=== PATIENT | male | born 1995 | race Caucasian/White ===

== ENCOUNTER 2019-12-12 15:48 | Emergency (ER) | payer BC, SELFPAY ==
[2019-12-12 16:00] VITALS: BP 138/71; PULSE 70; RESP 20; TEMP 36.7; O2SAT 98; BMI 27.6
[2019-12-12 16:02] VITALS: BP 138/71; PULSE 70; RESP 20; TEMP 36.7; O2SAT 98; BMI 27.6
[2019-12-12 16:36] VITALS: BP 138/71; PULSE 70; RESP 20; TEMP 36.7; O2SAT 98
== END 2019-12-12 16:39 | disposition home or self-care (01) ==
PROVIDERS: Emergency Provider Nurse Practitioner Family; PCP Family Medicine
DX: S61.432A Puncture wound without foreign body of left hand, initial encounter (principal); S61.431A Puncture wound without foreign body of right hand, initial encounter; Z23 Encounter for immunization
CPT/HCPCS: 90471; 90715; 99201

== ENCOUNTER 2020-03-15 10:28 | Emergency (ER) | payer BC, SELFPAY ==
[2020-03-15 10:35] VITALS: BP 115/66; PULSE 78; RESP 18; TEMP 36.9; O2SAT 98; BMI 27.1
[2020-03-15 10:46] VITALS: BP 115/66; PULSE 76; RESP 18; O2SAT 97
--- NOTE | 2020-03-15 10:47 | XR_ITS ---
PROCEDURE: XR FOOT LT MIN 3V CLINICAL INDICATION: fall Posttraumatic pain COMPARISON: No exams were available for comparison FINDINGS: Or there is dislocation of the PIP joint of the 4th toe. The middle phalanx is dislocated laterally. No obvious fracture. IMPRESSION: Dislocation of the PIP joint of the 4th toe Dictated by: Edmund Law MD 03/15/2020 11:59 Edmund Law MD in [place] 03/15/2020 11:59
--- NOTE | 2020-03-15 10:52 | PC.NURSE ---
rad called for ultrasound
--- NOTE | 2020-03-15 12:03 | HMH.EDGENADL ---
ED Disposition Clinical Impression: Dislocation of toe, left, closed Qualifiers: Encounter type: initial encounter Qualified Code(s): S93.105A - Unspecified dislocation of left toe(s), initial encounter Disposition: Home, Self-Care Condition on Discharge: Good Instructions: DI for Dislocated Toe Prescriptions: Ibuprofen [Ibuprofen 800mg Tablet] 800 mg PO TIDP PRN #20 tab PRN Reason: Moderate Pain Transmission Status: Pending to [facility] Referrals: Sherwin Lisa MD [Primary Care Provider] - - Critical Care Critical Care Time: No Attestation: On 03/15/20, the high probability of a clinically significant, sudden or life threatening deterioration of the following system(s) required my full and direct attention, intervention and personal management. The time I documented below is in addition to time spent performing reported procedures but includes the following listed in this critical care notation. Medical Decision Making - Medical Records Medical records reviewed: Yes: I reviewed the patient's medical records. - Je Inquiry Pt receiving controlled substance: Yes Je was queried for this patient: No Risks and benefits of using a controlled substance: were discussed with pt by me Vital Signs: 03/15/20 10:35 03/15/20 10:46 Temperature 98.4 F Temperature Source Oral Pulse Rate [Radial] 78 76 Respiratory Rate 18 18 Blood Pressure [Right Arm] 115/66 115/66 Blood Pressure Mean [Right Arm] 82 82 Blood Pressure Source [Right Arm] Automatic Cuff Automatic Cuff Blood Pressure Position [Right Arm] Sitting Sitting 02 Sat by Pulse Oximetry 98 97 Oxygen Delivery Method Room Air Orders (Tests/Meds): ED MEDICATIONS Discontinued Medications Generic Name Dose Route Start Last Admin Trade Name Freq PRN Reason Stop Dose Admin Ibuprofen 600 mg 03/15/20 10:40 03/15/20 10:42 Motrin 600mg Tablet PO 03/15/20 10:41 600 mg ONCE ONE Administration Lidocaine HCl 5 ml 03/15/20 11:25 Lidocaine 1% 10ml Mdv SQ 03/15/20 11:26 ONCE ONE Morphine Sulfate 4 mg 03/15/20 11:24 03/15/20 11:35 Morphine 4mg/Ml Syringe IM 03/15/20 11:25 4 mg ONCE ONE Administration ORDERS Category Date Time Status Foot XR left 2 views [XR foot LT 2V] Stat Exams 03/15/20 11:50 Ordered - Radiology Data #1 Image(s): Foot/Toes FINDINGS: Or there is dislocation of the PIP joint of the 4th toe. The middle phalanx is dislocated laterally. No obvious fracture. IMPRESSION: Dislocation of the PIP joint of the 4th toe - Reevaluation(s) Time: 12:06 Reevaluation #1: On reevaluation, patient's pain is improved. Patient was placed in Ortho shoe. Needs to follow-up with PCP in 48 hours. Given strict return precautions. Verbalized understanding. Medical Decision Narrative: 24-year-old male presented to the emergency department with obvious toe dislocation. Patient will require resetting. Imaging obtained. Patient provided analgesics. General Adult HPI - General Chief complaint: PAIN Stated complaint: left foot 3rd toe Time Seen by Provider: 03/15/20 10:40 Mode of Arrival: Wheelchair Limitations: No Limitations Description of Symptoms (Recalled from ER Triage Doc. by RN): Tripped over a board and dislocated his left fourth toe. - History of Present Illness HPI narrative: This is a 24-year-old male presented to the emergency department with pain in his left foot. The patient tripped over a board while he was working and injured his foot. His fourth toe was obviously dislocated. Patient did not sustain any ankle injuries or leg injuries. Did not hit his head. No other injuries were sustained. Has a small scratch on the upper part of his foot. Tetanus is up-to-date. - Related Data Home Medications Medication Instructions Recorded Confirmed fluticasone propionate 50 2 spray INTRANASAL DAILY 02/06/19 02/06/19 mcg/actuation nasal s
[2020-03-15 12:06] VITALS: BP 102/64; PULSE 59; O2SAT 98
[2020-03-15 12:39] VITALS: BP 102/64; PULSE 65; RESP 19; TEMP 36.6; O2SAT 99
== END 2020-03-15 12:41 | disposition home or self-care (01) ==
PROVIDERS: Emergency Provider Emergency Medicine; PCP Family Medicine
DX: S93.105A Unspecified dislocation of left toe(s), initial encounter (principal); W01.0XXA Fall on same level from slipping, tripping and stumbling without subsequent striking against object, initial encounter; Y92.89 Other specified places as the place of occurrence of the external cause
CPT/HCPCS: 28660; 73620; 73630; 96372; 99282

== ENCOUNTER 2021-02-02 11:43 | Emergency (ER) | payer BC, SELFPAY ==
[2021-02-02 12:03] VITALS: BP 125/87; PULSE 76; RESP 19; TEMP 36.8; O2SAT 98; BMI 29.1
--- NOTE | 2021-02-02 12:29 | HMH.EDUTC ---
[facility] [place] Disposition Clinical Impression: Fatigue Qualifiers: Fatigue type: unspecified Qualified Code(s): R53.83 - Other fatigue Disposition: Home, Self-Care Condition on Discharge: Good Instructions: DI for Fatigue Additional Instructions: Make sure to call and follow up with your Family Doctor as soon as possible for further evaluation and lab testing Return if needed Straight to ER if any life threatening symptoms Referrals: Sherwin Lisa MD [Primary Care Provider] - As needed Forms: Work/School Release Time of Disposition: 12:39 Medical Decision Making - Je Inquiry Pt receiving controlled substance: No Je was queried for this patient: No Vital Signs: 02/02/21 12:03 Temperature 98.3 F Temperature Source Oral Pulse Rate [Left] 76 Respiratory Rate 19 Blood Pressure [Right Arm] 125/87 Blood Pressure Mean [Right Arm] 99 02 Sat by Pulse Oximetry 98 Medical Decision Narrative: Discussed with patient and recommended to follow up with PCP for extensive lab work up and discussion about sleep patterns and study if needed Patient verbalized understanding recommended calling and making appointment MARILUZ Patient informed in the [facility] we can test for emergent and recommended lab testing with PCP to include Vitamin levels etc that may cause him to feel fatigued that is not available to the [facility] and patient verbalized understanding denies any other complaints [facility] [place] HPI - General Stated complaint: sleeping a lot, exhausted Time Seen by Provider: 02/02/21 12:29 Mode of Arrival: Ambulatory Source of Information: Patient Limitations: No Limitations Description of Symptoms (Recalled from Triage Doc. by RN): pt c/o lethargy and sleeping a lot ongoing for 1 year. mother in law insisted he come in and get checked out. HEENT Symptoms (Recalled from RN notes): No Resp Symptoms (Recalled from RN notes): No Skin Symptoms (Recalled from RN notes): No MS Symptoms (Recalled from RN notes): No Functional Status (Recalled from RN notes): sleeping all the time. - History of Present Illness Provider Complaint: Patient state that he works about 60hrs a week State that he has been feeling fatigued off and on for over a year state that he sometimes he will sleep at night and still feel tired when he wakes up Denies fever, denies feeling ill States that he just feels tired sometimes like he hasnt got enough sleep States that his mother thinks it is from him working so much but mother in law says he needs to get checked out and have a good work up - Related Data Home Medications Medication Instructions Recorded Confirmed fluticasone propionate 50 2 spray INTRANASAL DAILY 02/06/19 02/06/19 mcg/actuation nasal spray,suspension montelukast 10 mg tablet 10 mg PO QPM 02/06/19 02/06/19 Previous Rx's Medication Instructions Recorded Ibuprofen [Ibuprofen 800mg 800 mg PO TIDP PRN #20 tab 03/15/20 Tablet] Allergies Allergy/AdvReac Type Severity Reaction Status Date / Time No Known Allergies Allergy Unverified 02/06/19 15:59 - Worker's Comp Is this a Worker's Comp case?: No [facility] History - Hepatitis A Screen Drug use history?: No High risk sexual behaviors?: No History of sexually transmitted infection?: No Currently employed?: No Childcare worker?: No Do you have indoor plumbing?: Yes Do you have electricity?: Yes Attestation statement:: This patient has been screened for Hepatitis A risk factors. I have reviewed the patient's past medical history: Yes Other Surgeries: Yes: No Previous Surgery Amputation: No Fractures: No - Social History Smoking Status: Never smoker Alcohol Intake: never Substance Use Type: denies use Occupational Status: other Housing: house Household Members: family Family Hx:: Diabetes ROS Obtained: Yes All systems reviewed & no additional complaints, Yes Systems reviewed as appropriate & no additional complaints - Constitutional Constitutional: Reports system review
[2021-02-02 13:20] VITALS: BP 121/83; PULSE 71; RESP 19; TEMP 36.8
== END 2021-02-02 13:21 | disposition home or self-care (01) ==
PROVIDERS: Emergency Provider Nurse Practitioner; PCP Family Medicine
DX: R53.83 Other fatigue (principal)
CPT/HCPCS: 99202; G0463

== ENCOUNTER 2021-07-16 19:16 | Emergency (ER) | payer BC, SELFPAY ==
[2021-07-16 20:40] VITALS: BP 134/79; PULSE 82; RESP 18; TEMP 36.6; O2SAT 99; BMI 28.3
--- NOTE | 2021-07-16 21:08 | HMH.EDUTC ---
[facility] [place] Dis[place] Clinical Impression: Encounter for laboratory testing for COVID-19 virus Disposition: Home, Self-Care Condition on Discharge: Good Instructions: DI for COVID-19 (Suspected or Confirmed ), Preventing the Spread of Coronavirus Discharge Instructions Additional Instructions: *Monitor Temp, Over the counter Motrin or Tylenol as directed/as needed Tylenol every 4 hours and Motrin every 6 hours (as long as your family doctor has told you that you can take it) for fever or pain. and straight to ER if unable to lower temp less than 101.0 after medication given *Warm salt water gargles may help to soothe the throat *Throat Lozenges *Warm fluids like tea with honey may help to soothe the throat *Sleep elevated *Humidifier/Vaporizer *Flonase 2 sprays in each nostril daily but be aware that it may take 2-3 days before you notice improvement Follow up IMMEDIATELY for new or worsening symptoms or no Noticeable improvement over the next 48-72 hours. 911 for difficulty breathing or swallowing You were tested for today for COVID19 your test result should be back in the next 24-48 hours, you may check your results on the [facility] My Health Portal if you have trouble logging on you may call You was given a handout with instructions for Self Quarantine and Self isolation for while you wait on test results and what to do if they are positive If you are positive the Health Dept will be contacting you also Make sure to take your Vitamins Vit. C Vit D and Zinc if you can take them Referrals: Sherwin Lisa MD [Primary Care Provider] - As needed Forms: Work/School Release Medical Decision Making - Je Inquiry Pt receiving controlled substance: No Je was queried for this patient: No Vital Signs: 07/16/21 20:40 Temperature 97.9 F Temperature Source Oral Pulse Rate [Right Brachial] 82 Respiratory Rate 18 Blood Pressure [Right Arm] 134/79 Blood Pressure Mean [Right Arm] 97 Blood Pressure Source [Right Arm] Automatic Cuff Blood Pressure Position [Right Arm] Sitting 02 Sat by Pulse Oximetry 99 Oxygen Delivery Method Room Air Orders (Tests/Meds): ORDERS Category Date Time Status Covid-19 Nasal PCR ([facility]) Routine Lab 07/16/21 21:05 Ordered Medical Decision Narrative: recommended testing for influenza and strep throat and patient declined states that he just wants COVID test [facility] [place] HPI - General Stated complaint: covid test Time Seen by Provider: 07/16/21 21:08 Mode of Arrival: Ambulatory Source of Information: Patient Limitations: No Limitations Description of Symptoms (Recalled from Triage Doc. by RN): PATIENT C/O RUNNY NOSE, SORE THROAT, HEADACHE, AND WEAKNESS SINCE THIS MORNING. REQUESTING COVID TEST HEENT Symptoms (Recalled from RN notes): Yes Resp Symptoms (Recalled from RN notes): No Skin Symptoms (Recalled from RN notes): No MS Symptoms (Recalled from RN notes): No Functional Status (Recalled from RN notes): WNL - History of Present Illness Provider Complaint: Patient states that he woke up this morning not feeling well States that he was having runny nose, fatigue, scratchy throat and headache State that he was recently around someone that had runny nose and similar symptoms and they told him it was allergies and he wanted to get tested for for COVID to be safe - Related Data Home Medications Medication Instructions Recorded Confirmed fluticasone propionate 50 2 spray INTRANASAL DAILY 02/06/19 02/06/19 mcg/actuation nasal spray,suspension montelukast 10 mg tablet 10 mg PO QPM 02/06/19 02/06/19 Previous Rx's Medication Instructions Recorded Ibuprofen [Ibuprofen 800mg 800 mg PO TIDP PRN #20 tab 03/15/20 Tablet] Allergies Allergy/AdvReac Type Severity Reaction Status Date / Time No Known Allergies Allergy Verified 07/16/21 21:04 - Worker's Comp Is this a Worker's Comp case?: No [facility] History - Hepatitis A Screen Drug use history?: No High risk sexual be
[2021-07-16 21:11] VITALS: BP 134/79; PULSE 82; RESP 18; TEMP 36.6; O2SAT 99
== END 2021-07-16 21:15 | disposition home or self-care (01) ==
PROVIDERS: Emergency Provider Nurse Practitioner; PCP Family Medicine
DX: Z20.822 Contact with and (suspected) exposure to COVID-19 (principal); R51.9 Headache, unspecified; R53.1 Weakness
CPT/HCPCS: 99202; C9803; G0463; U0003; U0005

== ENCOUNTER 2021-12-20 11:43 | Emergency (ER) | payer BC, SELFPAY ==
[2021-12-20 11:58] VITALS: BP 144/65; PULSE 122; RESP 18; TEMP 37.1; O2SAT 96; BMI 28.5
--- NOTE | 2021-12-20 12:01 | HMH.EDUTC ---
[facility] [place] Clinical Impression: Encounter for laboratory testing for COVID-19 virus Disposition: Home, Self-Care Condition on Discharge: Good Instructions: Vitamin B12, Vitamin D, Vitamin C (Ascorbic Acid), DI for COVID-19 (Suspected or Confirmed ), Preventing the Spread of Coronavirus Discharge Instructions Additional Instructions: *Monitor Temp, Over the counter Motrin or Tylenol as directed/as needed Tylenol every 4 hours and Motrin every 6 hours (as long as your family doctor has told you that you can take it) for fever or pain. and straight to ER if unable to lower temp less than 101.0 after medication given *Warm salt water gargles may help to soothe the throat *Throat Lozenges *Warm fluids like tea with honey may help to soothe the throat *Sleep elevated *Humidifier/Vaporizer Follow up IMMEDIATELY for new or worsening symptoms or no Noticeable improvement over the next 48-72 hours. 911 for difficulty breathing or swallowing You were tested for today for COVID19 your test result should be back in the next 24-48 hours, your results will be available for viewing on the [facility] [employer] Health Portal Prescriptions: Brompheniramine/Pseudoephed/Dm [Bromfed Dm Cough Syrup] 5 - 10 ml PO Q4-6H PRN #200 ml PRN Reason: Cough Transmission Status: Pending to [facility] Referrals: Sherwin Lisa MD [Primary Care Provider] - As needed Forms: Work/School Release Time of Disposition: 12:03 Medical Decision Making - Je Inquiry Pt receiving controlled substance: No Je was queried for this patient: No Vital Signs: 12/20/21 11:58 Temperature 98.8 F Temperature Source Oral Pulse Rate [Left Radial] 122 H Respiratory Rate 18 Blood Pressure [Right Arm] 144/65 H Blood Pressure Mean [Right Arm] 91 02 Sat by Pulse Oximetry 96 [facility] [place] HPI - General Stated complaint: covid test Time Seen by Provider: 12/20/21 12:01 Description of Symptoms (Recalled from Triage Doc. by RN): patient here for a covid test. patient took an at home test and it was positive. patient states her has had cough, chills and sore throat that began this morning HEENT Symptoms (Recalled from RN notes): Yes Resp Symptoms (Recalled from RN notes): Yes Skin Symptoms (Recalled from RN notes): No MS Symptoms (Recalled from RN notes): No Functional Status (Recalled from RN notes): wnl - History of Present Illness Provider Complaint: Patient states that yesterday he started having sinus congestion and mild cough thought it was allergies and took 2 benadryl but this morning he woke up with body aches, chills, scratchy throat and took an at home COVID test and it was positive so he came in to get tested to see if ours showed him positive too - Related Data Home Medications Medication Instructions Recorded Confirmed fluticasone propionate 50 2 spray INTRANASAL DAILY 02/06/19 02/06/19 mcg/actuation nasal spray,suspension montelukast 10 mg tablet 10 mg PO QPM 02/06/19 02/06/19 Previous Rx's Medication Instructions Recorded Ibuprofen [Ibuprofen 800mg 800 mg PO TIDP PRN #20 tab 03/15/20 Tablet] Brompheniramine/Pseudoephed/Dm 5 - 10 ml PO Q4-6H PRN #200 ml 12/20/21 [Bromfed Dm Cough Syrup] Allergies Allergy/AdvReac Type Severity Reaction Status Date / Time No Known Allergies Allergy Verified 12/20/21 12:01 - Worker's Comp Is this a Worker's Comp case?: No [facility] History - Hepatitis A Screen Attestation statement:: This patient has been screened for Hepatitis A risk factors. I have reviewed the patient's past medical history: Yes Other Surgeries: Yes: No Previous Surgery Amputation: No Fractures: No - Social History Smoking Status: Never smoker Alcohol Intake: never Substance Use Type: denies use Occupational Status: other Housing: house Household Members: family Family Hx:: Diabetes ROS Obtained: Yes All systems reviewed & no additional complaints, Yes Systems reviewed as appr
[2021-12-20 12:07] VITALS: BP 144/65; PULSE 122; RESP 18; TEMP 37.1
== END 2021-12-20 12:13 | disposition home or self-care (01) ==
PROVIDERS: Emergency Provider Nurse Practitioner; PCP Family Medicine
DX: U07.1 COVID-19 (principal); J02.9 Acute pharyngitis, unspecified; M79.10 Myalgia, unspecified site; Z79.1 Long term (current) use of non-steroidal anti-inflammatories (NSAID); Z79.51 Long term (current) use of inhaled steroids; Z79.899 Other long term (current) drug therapy; Z83.3 Family history of diabetes mellitus
CPT/HCPCS: 99213; C9803; G0463; U0003; U0005

== ENCOUNTER 2022-09-25 09:00 | Emergency (ER) | payer BC, SELFPAY ==
[2022-09-25 09:05] VITALS: BP 126/87; PULSE 82; RESP 20; TEMP 36.8; O2SAT 97; BMI 30.2
--- NOTE | 2022-09-25 09:18 | EXP.UTC ---
Discharge Plan Disposition Patient Disposition: Home, Self-Care Condition: Good Prescriptions Prescriptions: New penicillin V potassium 500 mg tablet 500 mg PO BID Qty: 20 0RF methylprednisolone [Medrol (Benito)] 4 mg tablets,dose pack See Rx Instructions .Route .COMPLEX 6 Days Qty: 21 0RF Rx Instructions: taper pack; Referrals Follow up/Referrals: Sherwin Lisa MD [Primary Care Provider] - See instructions Activity Restrictions/Add. Instructions Additional Instructions/Restrictions: *Monitor Temp, Over the counter Motrin or Tylenol as directed/as needed Tylenol every 4 hours and Motrin every 6 hours (as long as your family doctor has told you that you can take it) for fever or pain. and straight to ER if unable to lower temp less than 101.0 after medication given *Warm salt water gargles may help to soothe the throat *Throat Lozenges? *Warm fluids like tea with honey may help to soothe the throat? *Sleep elevated *Humidifier/Vaporizer *If you did not take Penicillin shot or was unable to, start taking antibiotic immediately and make sure that you take it for the FULL length of time although you should start to feel better in 24-48 hours *change toothbrush and toothpaste 24-48 hours after starting to take antibiotics so you do not reinfect yourself Monitor Temp. Tylenol and/or Ibuprofen as needed. ER if fever is no less than 101 despite alternating Tylenol and Ibuprofen * Encourage fluids, water, Gatorade, powerade, pedialyte if infant/toddler/or child *Cold fluids, popsicles and ice cream may feel good on his throat Follow up IMMEDIATELY for new or worsening symptoms or no Noticeable improvement over the next 48-72 hours. 911 for difficulty breathing or swallowing Follow up IMMEDIATELY for new or worsening symptoms or no Noticeable improvement over the next 48-72 hours. 911 for difficulty breathing or swallowing Clinical Impressions Clinical Impression: Strep throat Stand Alone Forms Stand Alone Forms: Work/School Release Instructions Patient Instructions: DI for Strep Throat, Strep Throat Discharge ED Provider: Comfort Patton [facility] [place] General Stated complaint: sore throat,fever,ear pain Mode of Arrival: Ambulatory Source of Information: Patient Limitations: No Limitations Time Seen by Provider: 09/25/22 09:18 Description of Symptoms (Recalled from Triage Doc. by RN): fever, aches, sore throat, chills, and ear ache bilateral. HEENT Symptoms (Recalled from RN notes): Yes Resp Symptoms (Recalled from RN notes): No Skin Symptoms (Recalled from RN notes): No MS Symptoms (Recalled from RN notes): No Functional Status (Recalled from RN notes): n/a History of Present Illness Provider Complaint: Patient states that he hasnt been feeling well States that he has been having fever, headache, sore throat and this morning he noticed blisters all over his tonsils and was not feeling well so he came in Related Data Previous Rx's Medication Instructions Recorded methylprednisolone 4 mg tablets in See Rx Instructions .Route 09/25/22 a dose pack (Medrol (Benito)) .COMPLEX 6 days #21 tabs penicillin V potassium 500 mg 500 mg PO BID #20 tabs 09/25/22 tablet Allergies Allergy/AdvReac Type Severity Reaction Status Date / Time No Known Allergies Allergy Verified 09/25/22 09:16 Worker's Comp Is this a Worker's Comp case?: No PFSH PFS Disclaimer: The information contained in this section may have been updated after the patient was seen, as this information can be updated by other users. Social History Smoking Status: Never smoker alcohol intake: never substance use type: denies use current occupational status: other Travel in the last 8 weeks: None household members: family housing: house ROS Obtained: Yes All systems reviewed & no additional complaints except as documented and Yes Systems rev
[2022-09-25 09:24] LABS: UTC Strep Screen (Rapid) Positive (Negative)
[2022-09-25 09:45] VITALS: BP 126/87; PULSE 82; RESP 20; TEMP 36.8; O2SAT 97
== END 2022-09-25 09:45 | disposition home or self-care (01) ==
PROVIDERS: Emergency Provider Nurse Practitioner; PCP Family Medicine
DX: J02.0 Streptococcal pharyngitis (principal); R51.9 Headache, unspecified; R50.9 Fever, unspecified
CPT/HCPCS: 87880; 99212; 99214; G0463

== ENCOUNTER 2024-10-03 10:11 | Outpatient (CLI) | payer BC, SELFPAY ==
--- NOTE | 2024-10-03 10:31 | XR_ITS ---
FINAL REPORT CLINICAL HISTORY: dorsalgia nki COMPARISON: None FINDINGS: 3 views of the lumbar spine were obtained. There is no evidence of fracture. There is no malalignment. The vertebrae are normal in height. There is moderate facet hypertrophy in the lower lumbar spine. No paraspinous soft tissue abnormalities identified. IMPRESSION: Hypertrophic changes without acute bony abnormality. Reviewed, Interpreted and Dictated by Zander Kevin MD Transcribed by Jeanne Caldwell Authenticated and [facility]
--- NOTE | 2024-10-03 10:31 | XR_ITS ---
FINAL REPORT CLINICAL HISTORY: dorsalgia nki COMPARISON: None FINDINGS: SACRUM COCCYX 3 views demonstrate no acute fracture or dislocation. The sacral arches are intact. The sacroiliac joints are unremarkable. No soft tissue abnormality is seen. IMPRESSION: No acute process. Reviewed, Interpreted and Dictated by Zander Kevin MD Transcribed by Jeanne Caldwell Authenticated and [facility]
[2024-10-03 10:45] LABS: Anti-Centromere B Antibodies ND; Anti-DNA (DS) Ab Qn ND; Anti-Jo-1 ND; Antichromatin Antibodies ND; Antiscleroderma-70 Antibodies ND; RNP Antibodies ND; Sjogren's Anti-SS-A ND; Sjogren's Anti-SS-B ND
[2024-10-03 11:17] LABS: Basophils # 0.1 K/mm3 (0-0.2); Eosinophils # 0.1 K/mm3 (0.0-0.4); Eosinophils % 1.1 % (0.1-12.0); Hematocrit 49.8 % (42.0-52.0); Hemoglobin 16.9 g/dL (14.1-18.0); Lymphocytes # 1.7 K/mm3 (0.7-4.5); Lymphocytes % 23.4 % (10-50); Mean Corpuscular HGB Conc 33.9 g/dL (31.8-35.4); Mean Corpuscular Hemoglobin 28.9 pg (27.0-31.2); Mean Corpuscular Volume 85.3 fl (80-94); Mean Platelet Volume 9.2 fl (7.4-10.4); Monocytes # 0.6 K/mm3 (0.1-1.0); Monocytes % 8.8 % (1.7-9.3); Neutrophils # 4.7 K/mm3 (1.8-7.8); Platelet Count 343 K/mm3 (142-424); Red Blood Count 5.84 M/mm3 (4.60-6.20); White Blood Count 7.3 K/mm3 (4.8-10.8)
[2024-10-03 11:30] LABS: Hemoglobin A1C 5.3 % (4.0-6.0)
[2024-10-03 11:41] LABS: Alanine Aminotransferase 80 U/L (12-78); Albumin Level 5.4 g/dl (3.5-5.0); Albumin/Globulin Ratio 1.7 (1.1-1.8); Alkaline Phosphatase 67 U/L (38-126); Aspartate Amino Transferase 49 U/L (17-59); Bilirubin,Total 0.8 mg/dl (0.2-1.3); Blood Urea Nitrogen 14 mg/dl (9-20); Calcium 10.8 mg/dl (8.4-10.2); Carbon Dioxide 29 mmol/L (22.0-30.0); Chloride 99 mmol/L (98-107); Chol/HDL Ratio 4.9 (1-3.5); Cholesterol 260 mg/dl (140-200); Estimated Glomerular Filt Rate 88 ml/min (>60); GFR (African American) 107 ML/MIN (>60); Globulin 3.1 g/dL (1.3-3.2); Glucose 99 mg/dl (74-100); HDL Cholesterol 53 mg/dl (40-60); Magnesium 2.2 mg/dl (1.6-2.3); Sodium 140 mmol/L (136-145); Total Protein,Serum 8.5 g/dl (6.3-8.2); Triglycerides 215 mg/dl (30-150); VLDL Cholesterol 43 mg/dL (0-40)
[2024-10-03 11:53] LABS: Direct LDL Cholesterol 143.58 mg/dL (100-129)
[2024-10-03 11:58] LABS: 25-OH Vitamin D, Total 33.3 ng/mL (30-100)
[2024-10-03 12:11] LABS: Thyroid Stimulating Hormone 2.25 uIU/mL (0.465-4.68)
[2024-10-03 12:37] LABS: Vitamin B12 > 1000 pg/mL (239-931)
[2024-10-03 12:59] LABS: Ferritin 105 ng/ml (17.9-464)
[2024-10-06 13:28] LABS: Antinuclear Antibodies (ANA) Negative (Negative)
[2024-10-07 09:57] LABS: Intact Parathyroid Hormone 26.8 pg/mL (7.5-53.5)
== END 2024-10-03 23:59 | disposition home or self-care (01) ==
LOC: RT 10:12
PROVIDERS: PCP Nurse Practitioner Family; Visit Provider Nurse Practitioner Family
DX: R00.2 Palpitations (principal); R00.0 Tachycardia, unspecified; E83.52 Hypercalcemia; M54.50 Low back pain, unspecified; E53.8 Deficiency of other specified B group vitamins; R53.83 Other fatigue; R20.9 Unspecified disturbances of skin sensation
CPT/HCPCS: 36415; 72100; 72220; 80053; 80061; 82306; 82607; 82728; 83036; 83735; 83970; 84443; 85025; 86038; 93225; 93227

== ENCOUNTER 2024-10-17 10:06 | Outpatient (CLI) | payer BC, SELFPAY ==
--- NOTE | 2024-10-17 10:10 | CA_ITS ---
APPROVED REPORT EXAM: Comprehensive 2D, Doppler, and color-flow Echocardiogram Building Architect: Starla Martinez, RCS, RVS Ht: 6 ft 0 in Wt: 242lbs BSA: 2.31 BP: 110/89 mmHg Indications: ABN EKG 2D Dimensions IVSd 0.79 cm M: 0.6-1.2 LVEF (Visual) 50.40 % PWd 1.12 cm M: 0.6 - 1.2 LVEF (Thomas's) 55.20 % M: 52 - 72 LVDd 4.40 cm M: 4.2 - 5.9 LV Volume 158.60 mL M: 62 - 150 LVDs 3.28 cm M: 2.5 - 4.0 LV Volume Index 68.7 mL/m2 M: 34 - 74 Left Atrium 2.69 cm M: 3.0 - 4.0 LA Volume 42.90 mL LA Volume Index 18.57 mL/m2 (M/F) 16-34 EF AP4 53.60 % EF AP2 55.9 % EF BP 55.2 % GL Strain -12.6 % M-Mode Dimensions LA Diam 3.11 cm (1.9-4.0) LVDd 4.22 cm (3.5-5.7) LVDs 3.10 cm (3.5-5.7) EF (Teich) 52.30% EPSs 0.53 cm FS 26.50% EDV (Teich) 79.50 mL TAPSE 2.06 (<1.7) ESV (Teich) 37.90 mL LV Diastology E Decel Time 267 (160-240 msec) E/A Ratio 1.8 MED A' 12.00 cm/s LAT A' 8.30 cm/s Aortic Valve LATRICE Index 0.98 cm2/m2 AoV Peak Cj. 102.0 (50-130 cm/s) AO Peak GR. 4.20 mmHg AO Mean GR. 2.30 (<5 mmHg) AO VTI 23.0 (18-25 cm) LATRICE (VTI) 2.33 (2.5-4.5 cm2) Mitral Valve MV E Max Jc. 62.0 (40-130 cm/s) MV A Velocity 35.0 (40-130 cm/s) E/A Ratio 1.78 MV PHT 78.0 ms Pulmonary Valve WV End VMAX 165.0 cm/s Tricuspid Valve TR P. Velocity 208.00 cm/s RAP Estimate 10.00 mmHg RVSP 27.30 mmHg Left Ventricle The left ventricle is normal size. The left ventricular systolic function is normal. The left ventricular ejection fraction is within the normal range. There is normal left ventricular wall thickness. There is normal LV segmental wall motion. The left ventricular diastolic function is normal. LVEF is 55%. Right Ventricle The right ventricle is normal size. The right ventricular systolic function is normal. Atria The left atrium size is normal. The right atrium size is normal. The interatrial septum was not well-visualized. Aortic Valve The aortic valve is normal in structure. There is no aortic valvular stenosis. Trace aortic regurgitation. Mitral Valve The mitral valve is normal in structure. No evidence of mitral valve stenosis. Trace mitral regurgitation. Tricuspid Valve Tricuspid valve is grossly normal in structure and function. Trace tricuspid regurgitation. There is insufficient TR jet to estimate RVSP. Pulmonic Valve The pulmonary valve is normal in structure. Mild pulmonic regurgitation. Great Vessels The aortic root is normal in size. IVC is normal in size and collapses >50% with inspiration. Pericardium There is no pericardial effusion. Other Information Study Quality: Adequate Conclusion Normal biventricular systolic function. Mild PI. Electronically signed by : Keyla Velasquez MD 10/20/2024 14:02:27
== END 2024-10-17 23:59 | disposition home or self-care (01) ==
LOC: RT 10:06
PROVIDERS: PCP Nurse Practitioner Family; Visit Provider Nurse Practitioner Family
DX: R94.31 Abnormal electrocardiogram [ECG] [EKG] (principal)
CPT/HCPCS: 93306

== ENCOUNTER 2024-10-21 10:50 | Outpatient (RCR) | payer BC, SELFPAY ==
--- NOTE | 2024-10-21 11:43 | HMH.PTOPEV ---
PT Outpatient Evaluation Rehab PT Outpatient Evaluation Start: 10/21/24 11:33 Freq: Status: Active Protocol: Document 10/21/24 11:33 JACQUE (Rec: 10/21/24 11:43 JACQUE [id number]) E-signed By Paxton Zambrano, PT Outpatient Therapy Subjective History Subjective History Pt is a 29 yom who is referred to [facility] outpatient PT with complaints of LBP. The pt reports that it began hurting approximately 3 months ago. He reports that he sought chiro care frequently. He reports that he saw his PCP approximately 2-3 weeks ago and was prescribed a steroid pack. He reports that this helped tremendously and he is having no issues with his back currently. 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 The pt reports that he does not think that he needs Physical Therapy at this time. New diagnosis of cancer in past 12 No months? Level of pain today (0-10) 0 Pain scale - at its best (0-10) 0 Pain scale - at its worst (0-10) 0 Miscellaneous Dx PT Eval Objective Objective TTP: 1/4 to L2-L4 Strength: 5/5 to B LEs grossly ROM: WNL into all planes without pain Outpatient Therapy Assessment Prognosis Rehab Potential Innapropriate for Skilled Therapy Comment Pt presents with no apparent impairments or deficits this date. Pt also reports no functional incapabilities. Pt instructed in extension-based exercises. Pt instructed to get a new referral if pain returns or if things change. Skilled PT is not indicated at present. Outpatient Therapy Plan of Care Treatment Plan May Include Therapeutic Activities to Return to Yes Previous Functional/Work Level Frequency Times per week 1 Duration Number of Weeks 1 Addendums This patient is a candidate for social No or vocational rehab? Patient/Guardian verbally acknowledges Yes understanding of treatment program and consents to further treatment? Patient/Guardian verbally acknowledges Yes understanding of diagnosis, prognosis and goals for treatment? Eval Complexity PT Charges 08967 - Low Complexity Shoulder/Elbow Eval Shoulder Objective Measurements Elbow Objective Measurements PHYSICIAN CERTIFICATION: I certify the specified therapy services for Joey Sierra are required, authorized, and reviewed every 30 days.
== END 2024-10-21 23:59 | disposition home or self-care (01) ==
LOC: PT 10:50
PROVIDERS: PCP Nurse Practitioner Family; Visit Provider Nurse Practitioner Family
DX: M54.50 Low back pain, unspecified (principal)
CPT/HCPCS: 97163

== ENCOUNTER 2024-12-05 09:32 | Outpatient (CLI) | payer BC, SELFPAY ==
[2024-12-05 17:52] LABS: Alanine Aminotransferase 51 U/L (12-78); Albumin Level 5.1 g/dl (3.5-5.0); Albumin/Globulin Ratio 1.6 (1.1-1.8); Alkaline Phosphatase 63 U/L (38-126); Anion Gap 15.4 mEq/L (5-15); Aspartate Amino Transferase 36 U/L (17-59); Bilirubin,Total 0.6 mg/dl (0.2-1.3); Blood Urea Nitrogen 14 mg/dl (9-20); Calcium 9.8 mg/dl (8.4-10.2); Carbon Dioxide 29 mmol/L (22.0-30.0); Chloride 101 mmol/L (98-107); Estimated Glomerular Filt Rate 88 ml/min (>60); GFR (African American) 107 ML/MIN (>60); Globulin 3.1 g/dL (1.3-3.2); Glucose 92 mg/dl (74-100); Potassium 4.4 mmoL/L (3.5-5.1); Sodium 141 mmol/L (136-145); Total Protein,Serum 8.2 g/dl (6.3-8.2)
[2024-12-05 18:41] LABS: Vitamin B12 936 pg/mL (239-931)
== END 2024-12-05 23:59 | disposition home or self-care (01) ==
LOC: LAB.DROPOF 12-08 09:32
PROVIDERS: PCP Nurse Practitioner Family; Visit Provider Nurse Practitioner Family
DX: E53.8 Deficiency of other specified B group vitamins (principal); R74.8 Abnormal levels of other serum enzymes
CPT/HCPCS: 80053; 82607